=== PATIENT | male | born 1970 | race Caucasian/White ===

== ENCOUNTER 2016-05-06 19:40 | Emergency (ER) | payer OTHER ==
[~2016-05-06] VITALS: Ht 185.4 cm; Wt 83.9 kg
[2016-05-06] MEDS ORDERED: KEFLEX500 MG PO (22:00)
[2016-05-06] MEDS ORDERED: NAPROSYN500 MG PO (22:00)
[2016-05-06 22:20] VITALS: BP 110/55
== END 2016-05-06 22:21 | disposition home or self-care (01) ==
LOC: EME 19:40 → EXP 19:40
PROC: 0HC6XZZ Extirpation of Matter from Back Skin, External Approach (ICD-10-PCS; principal; 2016-05-06)
DX: S30.850A Superficial foreign body of lower back and pelvis, initial encounter (principal); W45.8XXA Other foreign body or object entering through skin, initial encounter
CPT/HCPCS: 99281; 99284

== ENCOUNTER 2016-06-05 00:02 | Emergency (ER) | payer OTHER ==
[~2016-06-05] VITALS: Ht 182.9 cm; Wt 79.6 kg
[~2016-06-05 00:02] MED LIST: KEFLEX500 MG PO; NAPROSYN500 MG PO
[2016-06-05 00:44] LABS: INFLUENZA A VIRAL ANTIGEN NEGATIVE; INFLUENZA B VIRAL ANTIGEN POSITIVE
[2016-06-05] MEDS ORDERED: MOTRIN800 MG PO (03:43)
[2016-06-05] MEDS ORDERED: ROBITUSSIN AC,T10 ML PO (03:43)
[2016-06-05] MEDS ORDERED: TAMIFLU75 MG PO (03:43)
[2016-06-05] MEDS ORDERED: ACYCLOVIR800 MG PO (03:46)
[2016-06-05 04:06] VITALS: BP 127/82
== END 2016-06-05 04:07 | disposition home or self-care (01) ==
LOC: EME 00:02
DX: J10.1 Influenza due to other identified influenza virus with other respiratory manifestations (principal); B00.1 Herpesviral vesicular dermatitis
CPT/HCPCS: 87502; 87651 90; 99281; 99284